=== PATIENT | male | born 1950 | race Caucasian/White ===

== ENCOUNTER 2019-07-13 14:30 | Emergency (ER) | payer BC, MEDICARE, OTHER ==
[2019-07-13 14:55] VITALS: BP 168/81
[2019-07-13 15:02] LABS: Influenza B Molecular POSITIVE (Negative)
--- NOTE | 2019-07-13 15:11 | UC ---
FLU HPI - HPI Summary HPI Summary: Patient is a 68yo male with nasal congestion, chest congestion, and chills x1 week. Unsure of fevers. States symptoms "not really improving." Notes wheezing at times. Notes body aches at symptom onset. Denies n/v. Denies sob and chest pain. Taking mucinex for symptom relief. - History of Current Complaint Chief Complaint: UCRespiratory Stated Complaint: FLU LIKE SYMPTOMS Hx Obtained From: Patient Pain Intensity: 8 Pain Scale Used: 0-10 Numeric - Allergy/Home Medications Allergies/Adverse Reactions: Allergies Allergy/AdvReac Type Severity Reaction Status Date / Time No Known Allergies Allergy Verified 07/13/19 14:55 Home Medications: Home Medications guaiFENesin ER TAB [Mucinex*] 600 mg PO BID PRN 07/13/19 [History Confirmed ] PMH/Surg Hx/FS Hx/Imm Hx Previously Healthy: Yes - Surgical History Surgical History: None - Family History Known Family History: Positive: Non-Contributory - Social History Alcohol Use: Daily Alcohol Amount: 1 beer/day Substance Use Type: None Smoking Status (MU): Never Smoked Tobacco Review of Systems All Other Systems Reviewed And Are Negative: Yes Constitutional: Positive: Chills, Fatigue ENT: Positive: Sinus Congestion Respiratory: Positive: Cough, Other - wheezing. Negative: Shortness Of Breath Cardiovascular: Positive: Negative Gastrointestinal: Positive: Negative Musculoskeletal: Positive: Myalgia - 1 week ago Neurological/Mental Status: Positive: Negative Physical Exam - Summary Physical Exam Summary: Vital Signs Reviewed: Yes A+Ox3, no distress, well-appearing Eyes: Conjunctiva Clear ENT: Hearing grossly normal, bilateral cerumen impaction, moist, uvula midline, no exudate, no erythema Neck: Positive: Supple Respiratory: Positive: No respiratory distress, No accessory muscle use + CTA throughout no w/r Cardiovascular: RRR nl s1, s2 no m/r Musculoskeletal Exam: SANTOS x 4 without difficulty Neurological: Positive: Alert Psychological: Positive: age appropriate behavior Skin: Positive: no rash, no ecchymosis Vital Signs: Initial Vital Signs Temp 99.7 F 07/13/19 14:49 Pulse 88 07/13/19 14:49 Resp 16 07/13/19 14:49 BP 168/81 07/13/19 14:49 Pulse Ox 975 02/17/20 14:49 Lab Results 07/13/19 Range/Units 14:59 Influenza B (Rapid) Positive H (Negative) Flu Course/Dx - Course Course Of Treatment: Positive rapid flu B. Afebrile. Lung sounds clear. Discussed influenza with patient and educated on symptomatic treatment. Provided patient with an inhaler for any shortness of breath or wheezing. Ear irrigation also performed bilaterally to reveal clear TMs. Instructed to follow up with pcp if symptoms persist. Patient voiced understanding and agreed with treatment plan. - Differential Dx/Diagnosis Differential Diagnosis/HQI/PQRI: Influenza, Upper Respiratory Infection Provider Diagnosis: Influenza B, Impacted cerumen of both ears Discharge ED - Sign-Out/Discharge Documenting (check all that apply): Patient Departure All imaging exams completed and their final reports reviewed: No Studies - Discharge Plan Condition: Stable Disposition: HOME Prescriptions: Albuterol HFA INHALER* [Ventolin HFA Inhaler*] 1 - 2 puff INH Q6H PRN #1 mdi PRN Reason: Sob/Wheezing Patient Education Materials: How to Use a Metered-Dose Inhaler (ED), Influenza (ED) Referrals: Cindy Soliz MD [Primary Care Provider] - If Needed Additional Instructions: You tested positive for influenza today. Influenza is a virus and does not respond to antibiotic treatment. You may continue with mucinex for symptom relief. Use the inhaler for shortness of breath and wheezing. Get plenty of rest and increase your fluid intake. Follow up with your primary care provider if symptoms do not resolve within 5-7 days. - Billing Disposition and Condition Condition: STABLE Disposition: Home - Attestation Statements Provider Attestation: This patient was not seen by me. I was available for consult. Chart reviewed. huan
== END 2019-07-13 16:04 | disposition home or self-care (01) ==
LOC: UCEAST 14:30
DX: J10.1 Influenza due to other identified influenza virus with other respiratory manifestations (principal); H61.23 Impacted cerumen, bilateral
CPT/HCPCS: 99203; G0463